=== PATIENT | female | born 1930 | race Caucasian/White ===

== ENCOUNTER 2016-10-29 08:25 | Emergency (ER) | payer OTHER, MEDICARE ==
[2016-10-29 08:30] VITALS: BMI 19.3
--- NOTE | 2016-10-29 08:39 | PDOC ---
History of Present Illness - General History Source: Patient, Family (Daughter), Old Records Exam Limitations: No Limitations - History of Present Illness Initial Comments: 10/29/16 10:19 The patient is a 86 year old female presenting with her daughter, with a significant past medical history of AFIB, HTN and HLD, who presents to the emergency department with rectal bleeding for the past 3 days. She describes her rectal bleeding as bright red blood, which she noticed in the toiler bowel and the tissue she wiped with. She reports that she has abdominal cramping associated with her chief complaint. She describes her abdominal cramping as mild, mostly onset when she needs to have a bowel movement. She reports that she had similar episodes in the past of rectal bleeding, one which was black stool. The patient denies chest pain, shortness of breath, headache and dizziness. Denies fever, chills, nausea, vomit, diarrhea and constipation. Denies dysuria, frequency and urgency. Allergies: None Past surgical history: Cardiac stents, MVP, ppm, appendectomy and cholecystectomy Social history: No alcohol, tobacco or drug use reported <David Cooney - Last Filed: 10/29/16 13:44> <Edmar Waldron - Last Filed: 10/29/16 14:14> - General Chief Complaint: Bleeding from Anus Stated Complaint: RECTAL BLEED Time Seen by Provider: 10/29/16 08:39 Past History <David Cooney - Last Filed: 10/29/16 13:44> - Past Medical History Anemia: No Asthma: No Cancer: No Cardiac Disorders: Yes (a-fib) CVA: No COPD: No CHF: No Dementia: No Diabetes: No GI Disorders: No Disorders: No HTN: Yes Hypercholesterolemia: Yes Liver Disease: No Suicide Attempt (Hx): No Seizures: No Thyroid Disease: Yes - Surgical History Abdominal Surgery: No Appendectomy: Yes Cardiac Surgery: Yes (STENTS, REPLACEMENT OF MITRAL VALVE,ppm) Cholecystectomy: Yes Lung Surgery: No Neurologic Surgery: No Orthopedic Surgery: No - Immunization History Immunization Up to Date: Yes - Psycho/Social/Smoking Cessation Hx Anxiety: No Suicidal Ideation: No Smoking Status: No Smoking History: Never smoked Have you smoked in the past 12 months: No Number of Cigarettes Smoked Daily: 0 Information on smoking cessation initiated: No Hx Alcohol Use: No Drug/Substance Use Hx: No Substance Use Type: None Hx Substance Use Treatment: No <VanitaEdmar - Last Filed: 10/29/16 14:14> - Past Medical History Allergies/Adverse Reactions: Allergies Allergy/AdvReac Type Severity Reaction Status Date / Time erythromycin base Allergy Severe Hives Verified 10/29/16 08:26 [Erythromycin Base] Home Medications: Ambulatory Orders Atorvastatin Ca [Lipitor] 40 mg PO ASDIR 10/29/16 Cholecalciferol (Vitamin D3) [Vitamin D3 -] 1,000 unit PO DAILY 10/29/16 Cyanocobalamin (Vitamin B-12) [Vitamin B12] 2,500 mcg PO DAILY 10/29/16 Furosemide [Lasix] 20 mg PO DAILY 10/29/16 Halobetasol Prop 0.05% Tp Crm [Ultravate (Nf)] 1 applic TP DAILY 10/29/16 Levothyroxine [Synthroid -] 25 mcg PO DAILY 10/29/16 Nebivolol [Bystolic -] 5 mg PO DAILY 10/29/16 Warfarin Na [Coumadin] 4 mg PO DAILY 10/29/16 Review of Systems - Review of Systems Able to Perform ROS?: Yes Comments:: 10/29/16 10:19 CONSTITUTIONAL: No fever, no chills, no fatigue EYES: No visual changes ENT: No ear pain, no sore throat CARDIOVASCULAR: No chest pain, no palpitations RESPIRATORY: No cough, no SOB GI: +Rectal bleeding. No abdominal pain, no nausea, no vomiting, no constipation , no diarrhea GENITOURINARY: No dysuria, no frequency, no hematuria MUSKULOSKELETAL: No backpain, no joint pain, no myalgias SKIN: No rash NEURO: No headache <David Cooney - Last Filed: 10/29/16 13:44> *Physical Exam - Vital Signs Last Vital Signs Temp Pulse Resp BP Pulse Ox 97.7 F 84 18 143/84 100 10/29/16 08:26 10/29/16 08:26 10/29/16 08:26 10/29/16 08:26 10/29/16 08:45 - Physical Exam Comments: 10/29/16 10:20 CONSTITUTIONAL: Well-appearing; well-nourished; in no apparent distress HEAD: Normocephalic; atraumatic EYES: PERRL; EOM intact ENMT: External appears normal; normal oropharynx NECK: Supple; non-tender; no cervical lymphadenopathy CARD: Normal S1, S2; no murmurs, rubs, or gallops RESP: Normal chest excursion with respiration; breath sounds clear and equal bilaterally; no wheezes, rhonchi, or rales ABD: Soft, non-distended; non-tender; no palpable organomegaly, no palpable hernias EXT: Normal ROM in all four extremities; non-tender to palpation; distal pulses intact SKIN: Warm, dry, no rash NEURO: No focal neurological deficiencies. RECTAL EXAM: 2 nonthrombosed external hemrrhoids <David Cooney - Last Filed: 10/29/16 13:44> - Vital Signs Last Vital Signs Temp Pulse Resp BP Pulse Ox 97.7 F 84 18 143/84 100 10/29/16 08:26 10/29/16 08:26 10/29/16 08:26 10/29/16 08:26 10/29/16 08:26 <Edmar Waldron - Last Filed: 10/29/16 14:14> ED Treatment Course - LABORATORY CBC & Chemistry Diagram: 10/29/16 09:06 10/29/16 09:06 - ADDITIONAL ORDERS Additional order review: Laboratory Results 10/29/16 10/29/16 10/29/16 09:06 09:06 09:06 INR Sodium 141 Potassium 4.3 Chloride 105 Carbon Dioxide 25 Anion Gap 11 BUN 13 D Creatinine 0.8 Creat Clearance w eGFR > 60 Random Glucose 80 Calcium 8.4 L Total Bilirubin 0.9 D AST 49 H D ALT 22 D Alkaline Phosphatase 87 D Total Protein 7.0 Albumin 3.7 Stool Occult Blood Negative Blood Type O POSITIVE Antibody Screen Negative 10/29/16 09:06 INR 2.81 H D Sodium Potassium Chloride Carbon Dioxide Anion Gap BUN Creatinine Creat Clearance w eGFR Random Glucose Calcium Total Bilirubin AST ALT Alkaline Phosphatase Total Protein Albumin Stool Occult Blood Blood Type Antibody Screen 10/29/16 09:06 RBC 3.99 MCV 98.0 H MCHC 34.3 RDW 13.9 MPV 8.0 D Neutrophils % 61.7 Lymphocytes % 26.4 D Monocytes % 10.2 Eosinophils % 1.1 D Basophils % 0.6 - RADIOLOGY Radiograph Interpretation: 10/29/16 13:31 CT Abdomen and pelvis without contrast Reviewed by: Dr. Taurus Carney Impression: There is no CT evidence of acute colitis. Mild to moderate colitis may not be demonstrable on CT. sigmoid diverticulosis is noted without evidence of acute diverticulitis. 3 mm nonobstructing right renal calculus. S/p cholecystectomy As noted on prior chest and abdomen CT studies the partially imaged lower lung pacheco demonstrate evidence of COPD with bronchiectasis and peribronchial thickening. Left atrial dilation. S/P median sternotomy with mitral valve replacement. Transvenous cardiac pacemaker in place. <David Cooney - Last Filed: 10/29/16 13:44> - LABORATORY CBC & Chemistry Diagram: 10/29/16 09:06 10/29/16 09:06 <Edmar Waldron - Last Filed: 10/29/16 14:14> Medical Decision Making - Medical Decision Making 10/29/16 13:45 Dr. Green was called regarding the patient at 1:32pm. Dr. Sheppard covering. Dr. Sheppard was consulted regarding the patient at 1:44pm [phone] <David Cooney - Last Filed: 10/29/16 13:44> - Medical Decision Making 10/29/16 14:10 Patient is a well-appearing 86-year-old female with history of atrial fibrillation on Coumadin who presents with several episodes of hematochezia. In the ER, patient is awake and alert, hemodynamically stable. Serial abdominal exams reveal no focal tenderness. Rectal exam revealed 2 nonthrombosed external hemorrhoids but no evidence of active bleeding. Stool guaiac was noted to be negative. CBC shows hematocrit of 40. INR is noted to be 2.8. CT that and pelvis reveals no evidence of ischemic colitis, diverticulosis is noted and likely is responsible for self limiting episode of bleeding. I discussed the case with Dr. Palencia of GI. He agrees with the plan of discharge with outpatient follow-up. <Edmar Waldron - Last Filed: 10/29/16 14:14> *DC/Admit/Observation/Transfer - Attestations Scribe Attestion: 10/29/16 10:20 Documentation prepared by David Cooney, acting as medical supply technician for Edmar Waldron MD <David Cooney - Last Filed: 10/29/16 13:44> - Attestations Physician Attestion: 10/29/16 14:10 The documentation was prepared by the scribe under my direct supervision. I have reviewed the documentation which correctly represents the findings, medical decision-making and critical action taken by me. <Edmar Waldron - Last Filed: 10/29/16 14:14> Diagnosis at time of Disposition: Rectal hemorrhage - Discharge Dispostion Disposition: HOME Condition at time of disposition: Stable - Referrals Referrals: Abdon Soto MD [Primary Care Provider] - - Patient Instructions Printed Discharge Instructions: DI for Rectal Bleeding Additional Instructions: Do not take Coumadin tonight. Restart your regular dose tomorrow. Follow-up with Dr. Urban of GI next week. Return immediately for recurrent heavy bleeding.
[2016-10-29 09:12] LABS: BASOPHIL 0.6 % (0-2.0); EOSINOPHIL 1.1 % (0-4.5); MCH 33.6 pg (25.7-33.7); MCHC 34.3 g/dl (32.0-36.0); NEUTROPHILS 61.7 % (42.8-82.8); PLATELET COUNT 131 K/MM3 (134-434); RDW 13.9 % (11.6-15.6); WHITE BLOOD COUNT 8.2 K/mm3 (4.0-10.0)
[2016-10-29 09:30] LABS: INR 2.81 (0.82-1.09); PROTHROMBIN TIME (PATIENT) 31.6 SEC (9.98-11.88)
[2016-10-29 09:45] LABS: ALBUMIN 3.7 g/dl (3.4-5.0); ALK PHOS 87 U/L (45-117); ANION GAP 11 (8-16); BILIRUBIN,TOTAL 0.9 mg/dL (0.2-1.0); CALCIUM 8.4 mg/dL (8.5-10.1); CO2 25 mmol/L (21-32); CREATININE 0.8 mg/dL (0.55-1.02); GLUCOSE,RANDOM 80 mg/dL (74-106); SGPT/ALT 22 U/L (12-78)
[2016-10-29 09:47] LABS: SGOT/AST 49 U/L (15-37)
[2016-10-29 14:49] VITALS: BP 132/93; PULSE 75; TEMP 97.6
== END 2016-10-29 14:48 | disposition home or self-care (01) ==
LOC: JER 08:25
DX: K62.5 Hemorrhage of anus and rectum (principal); K64.4 Residual hemorrhoidal skin tags; I48.91 Unspecified atrial fibrillation; Z79.01 Long term (current) use of anticoagulants; I25.10 Atherosclerotic heart disease of native coronary artery without angina pectoris; I10 Essential (primary) hypertension; Z95.5 Presence of coronary angioplasty implant and graft; Z95.2 Presence of prosthetic heart valve; Z95.0 Presence of cardiac pacemaker; E78.00 Pure hypercholesterolemia, unspecified; E03.9 Hypothyroidism, unspecified
CPT/HCPCS: 36415; 74176-TC; 80053; 82272; 85025; 85610; 86850; 86900; 86901; 99283-25